=== PATIENT | female | born 1935 | race Caucasian/White ===

== ENCOUNTER 2023-12-03 11:45 | Emergency (ER) | payer MEDICARE ==
[~2023-12-03] VITALS: Ht 157.5 cm; Wt 49.5 kg
[2023-12-03 12:39] LABS: HEMATOCRIT 42.3 % (36.0-47.0); HEMOGLOBIN 13.8 g/dl (12.0-15.5); MEAN CORPUSCULAR HEMOGLOBIN 30.8 pg (27.0-33.0); MEAN CORPUSCULAR HGB CONC 32.6 g/dl (32.0-36.5); MEAN CORPUSCULAR VOLUME 94.4 fl (80.0-96.0); PLATELET COUNT, AUTOMATED 136 10^3/uL (150-450); RED BLOOD COUNT 4.48 10^6/uL (4.00-5.40); WHITE BLOOD COUNT 8.7 10^3/uL (4.0-10.0)
[2023-12-03 13:02] LABS: CALCIUM LEVEL 9.1 MG/DL (8.3-10.6); CREATININE FOR GFR 1.2 MG/DL (0.55-1.30); GLOMERULAR FILTRATION RATE 45.2 (>32); POTASSIUM SERUM 4.1 MMOL/L (3.5-5.1)
[2023-12-03 13:03] LABS: BILIRUBIN,DIRECT 0.1 MG/DL (<0.4); BILIRUBIN,TOTAL 0.5 MG/DL (0.3-1.2)
[2023-12-03 13:28] LABS: ATYPICAL LYMPH 3 % (0-5); BASOPHILS 2 % (0-1); EOSINOPHILS 6 % (0-3); LYMPHOCYTES 22 % (16-44); MONOCYTES 2 % (0-5); NEUTROPHILS 65 % (28-66); PLATELET ESTIMATE DECREASED (NORMAL)
[2023-12-03 14:45] VITALS: BP 135/65; TEMP 98.2; O2SAT 100
== END 2023-12-03 15:06 | disposition home or self-care (01) ==
LOC: M ED 11:45
DX: R53.1 Weakness (principal); G40.909 Epilepsy, unspecified, not intractable, without status epilepticus; Z88.1 Allergy status to other antibiotic agents; Z91.018 Allergy to other foods